=== PATIENT | male | born 1995 | race Caucasian/White ===

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

== ENCOUNTER 2021-01-14 21:45 | Emergency (ER) | payer BC ==
[2021-01-14 22:07] VITALS: TEMP 98.3
[2021-01-14] MEDS ORDERED: MORPHINE SULFATE 4 MG/ML SYRINGE IM STA (23:44)
[2021-01-14] MEDS ORDERED: KETOROLAC 15 MG/ML 1 ML VIAL IM STA (23:44)
[2021-01-14] MEDS ORDERED: ACET/COD 300 MG/30 MG STARTER PACK 6 TAB BTL PO STA (23:44)
[2021-01-14] MEDS ORDERED: CLINDAMYCIN 150 MG CAP PO STA (23:44)
--- NOTE | 2021-01-14 23:46 | ED ---
General Adult HPI - General Chief complaint: Dental/Oral Stated complaint: dental abscess Time Seen by Provider: 01/14/21 22:21 Source: patient Mode of arrival: ambulatory Limitations: no limitations - History of Present Illness Initial comments: 25 year-old female patient presents to the emergency department for evaluation of right lower dental pain. States it started over a week ago. He did see dentist on Sunday and was started on antibiotics. State he has another appointment this coming Sunday but the pain worsened. States that he had some facial swelling earlier today as well. Denies any fever or chills. Denies nausea, vomiting, trismus, or difficulty swallowing. Denies any pain or swelling beneath the tongue. - Related Data Home Medications Medication Instructions Recorded Confirmed Dextroamphetamine/Amphetamine 20 mg PO BID 12/14/16 12/14/16 [Adderall] Multivitamins, Thera [Multivitamin 1 tab PO DAILY 12/14/16 12/14/16 (formulary)] Previous Rx's Medication Instructions Recorded Clindamycin [Cleocin] 450 mg PO Q6H #120 cap 01/14/21 Allergies Allergy/AdvReac Type Severity Reaction Status Date / Time No Known Allergies Allergy Verified 01/14/21 22:07 Review of Systems ROS Statement: Those systems with pertinent positive or pertinent negative responses have been documented in the HPI. ROS Other: All systems not noted in ROS Statement are negative. Past Medical History Past Medical History: No Reported History Additional Past Medical History / Comment(s): ADHD, ADDERAL PRESCRIBED 6-7 YEARS History of Any Multi-Drug Resistant Organisms: None Reported Past Surgical History: No Surgical Hx Reported Past Anesthesia/Blood Transfusion Reactions: No Reported Reaction Past Psychological History: No Psychological Hx Reported Smoking Status: Current every day smoker Past Alcohol Use History: Occasional Past Drug Use History: None Reported General Exam Limitations: no limitations General appearance: alert, in no apparent distress Eye exam: Present: normal appearance, PERRL, EOMI. Absent: scleral icterus, con junctival injection, periorbital swelling ENT exam: Present: normal oropharynx, mucous membranes moist, other (There is extensive decay to tooth #18. Surrounding gingival erythema and hyperplasia. No evidence of drainable abscess. No current facial swelling.) Respiratory exam: Present: normal lung sounds bilaterally. Absent: respiratory distress, wheezes, rales, rhonchi, stridor Cardiovascular Exam: Present: regular rate, normal rhythm, normal heart sounds. Absent: systolic murmur, diastolic murmur, rubs, gallop, clicks Neurological exam: Present: alert, oriented X3, CN II-XII intact Psychiatric exam: Present: normal affect, normal mood Skin exam: Present: warm, dry, intact, normal color. Absent: rash Course Vital Signs 01/14/21 01/15/21 22:05 00:12 Temperature 98.3 F Pulse Rate 81 77 Respiratory 18 16 Rate Blood Pressure 120/82 138/91 O2 Sat by Pulse 98 98 Oximetry Medical Decision Making - Medical Decision Making 25-year-old male patient presents to the emergency department today for evaluation of right lower dental pain started a little over a week ago. Physical examination did reveal extensive decay to tooth #18. Surrounding gingival erythema hyperplasia. No evidence of drainable abscess. He is currently taking amoxicillin, he will be switched to clindamycin. Given pain medication. He is instructed to keep his dentist appointment on Sunday as he has planned. Return parameters discussed in detail. He verbalizes understanding and agrees with this plan. My attending is Dr. Alva. Disposition Clinical Impression: Dental abscess Disposition: HOME SELF-CARE Condition: Good Instructions (If sedation given, give patient instructions): Dental Abscess (ED) Additional Instructions: Stop taking your previous antibiotic and start the new one. Take medication sparingly as needed for severe pain. Continue ibuprofen. Follow-up with dentistry on Sunday as you have planned. Return to the emergency department for any new, worsening, or concerning symptoms. Consider taking over the counter probiotic or eating daily yogurt with live cultures while on the antibiotic. Prescriptions: Clindamycin [Cleocin] 450 mg PO Q6H #120 cap Is patient prescribed a controlled substance at d/c from ED?: No Referrals: Rambo Gonzales DO [Primary Care Provider] - 1-2 days Time of Disposition: 23:46
[2021-01-15 00:14] VITALS: BP 138/91; PULSE 77; RESP 16
== END 2021-01-15 00:14 | disposition home or self-care (01) ==
LOC: EC 21:45
DX: K04.7 Periapical abscess without sinus (principal); F17.200 Nicotine dependence, unspecified, uncomplicated
CPT/HCPCS: 99282; 96372 ×2; J2270; J1885